=== PATIENT | male | born 1935 | race Caucasian/White ===

== ENCOUNTER → 2017-05-04 | Emergency (ER) | payer OTHER ==
[~2017-05-04] VITALS: Ht 154.9 cm; Wt 59.0 kg
[~2017-05-04] MED LIST: ALLEGRA ALLERG180 MG; ALZ SR CAPLET1 EACH; ARICEPT23 MG; ASA81 MG; FOLIC ACID0.4 MG; FORTAMET500 MG; FOSAMAX70 MG; GLIMEPIRIDE2 MG; INTRINSI B12-F1 EACH; ISTALOL2.5 ML; NAMENDA5 MG; OSTERA TABLET1 EACH; RISPERDAL0.5 MG; SYNRIBO3.5 MG
== END | disposition home or self-care (01) ==
LOC: ER 11:40
DX: M54.5 Low back pain (principal)

== ENCOUNTER → 2018-01-20 | Emergency (ER) | payer OTHER ==
[~2018-01-20] VITALS: Ht 157.5 cm; Wt 60.8 kg
[~2018-01-20] MED LIST changes: +GLIPIZIDE ER2.5 MG; +SYNTHROID50 MCG
== END | disposition home or self-care (01) ==
LOC: ER 15:58
DX: G30.8 Other Alzheimer's disease (principal); F02.80 Dementia in other diseases classified elsewhere, unspecified severity, without behavioral disturbance, psychotic disturbance, mood disturbance, and anxiety; R06.02 Shortness of breath; F41.8 Other specified anxiety disorders

== ENCOUNTER 2021-04-18 17:17 | Emergency (ER) | payer OTHER ==
[~2021-04-18] VITALS: Ht 167.6 cm; Wt 62.6 kg
== END 2021-04-18 21:25 | disposition home or self-care (01) ==
LOC: ER 17:17
DX: S01.01XA Laceration without foreign body of scalp, initial encounter (principal); S01.81XA Laceration without foreign body of other part of head, initial encounter; S01.21XA Laceration without foreign body of nose, initial encounter; S50.812A Abrasion of left forearm, initial encounter; M54.2 Cervicalgia; R07.89 Other chest pain; R10.2 Pelvic and perineal pain; R73.09 Other abnormal glucose; G30.8 Other Alzheimer's disease; F02.80 Dementia in other diseases classified elsewhere, unspecified severity, without behavioral disturbance, psychotic disturbance, mood disturbance, and anxiety; W18.09XA Striking against other object with subsequent fall, initial encounter; Y93.89 Activity, other specified; Y92.128 Other place in nursing home as the place of occurrence of the external cause; Y99.8 Other external cause status

== ENCOUNTER 2021-07-25 08:32 | Inpatient (IN) | payer OTHER ==
[~2021-07-25] VITALS: Ht 165.1 cm; Wt 49.9 kg
== END 2021-08-03 14:33 | disposition expired | DRG 689 ==
LOC: ER 08:32 → MEDI 16:40
PROVIDERS: ADMIT Internal Medicine; ATTEND Internal Medicine
PROC: 4A12X4Z Monitoring of Cardiac Electrical Activity, External Approach (ICD-10-PCS; 2021-07-25)
PROC: 5A09557 Assistance with Respiratory Ventilation, Greater than 96 Consecutive Hours, Continuous Positive Airway Pressure (ICD-10-PCS; principal; 2021-07-26)
PROC: 02HV33Z Insertion of Infusion Device into Superior Vena Cava, Percutaneous Approach (ICD-10-PCS; 2021-07-28)
DX: N39.0 Urinary tract infection, site not specified (principal); J69.0 Pneumonitis due to inhalation of food and vomit; J96.01 Acute respiratory failure with hypoxia; E11.00 Type 2 diabetes mellitus with hyperosmolarity without nonketotic hyperglycemic-hyperosmolar coma (NKHHC); E87.0 Hyperosmolality and hypernatremia; I46.8 Cardiac arrest due to other underlying condition; R13.19 Other dysphagia; B96.20 Unspecified Escherichia coli [E. coli] as the cause of diseases classified elsewhere; D69.59 Other secondary thrombocytopenia; E86.0 Dehydration; E11.65 Type 2 diabetes mellitus with hyperglycemia; G30.1 Alzheimer's disease with late onset; F02.80 Dementia in other diseases classified elsewhere, unspecified severity, without behavioral disturbance, psychotic disturbance, mood disturbance, and anxiety; E03.8 Other specified hypothyroidism; E78.5 Hyperlipidemia, unspecified; Z66 Do not resuscitate; Z79.84 Long term (current) use of oral hypoglycemic drugs